=== PATIENT | female | born 1995 | race American Indian/Alaskan Native ===

== ENCOUNTER 2019-08-12 07:30 | Emergency (ER) | payer OTHER ==
[2019-08-12] MEDS ORDERED: BUTALB/ACETAMINOPHEN/CAFFEINE TAB PO ONE (07:58)
--- NOTE | 2019-08-12 08:34 | Emergency Department Report ---
HPI - General Chief Complaint: Headache Time Seen by Provider: 08/12/19 07:58 - HPI HPI: 24-year-old [place] female presents to the emergency department with a one-week history of a right-sided headache that sometimes radiates down towards the face and/or neck. She describes some mild photophobia but denies any vision change, slurred speech or any neurological deficits. Patient does not have any history of migraines but does say that she gets some recurrent headaches and the last one she had was about 2 weeks ago. She tried to my Profen and some sinus medication for her symptoms without any relief. Otherwise she denies any past medical history. No primary care physician. The patient drove herself in to be seen today. ED Past Medical Hx - Past Medical History Previous Medical History?: No - Surgical History Past Surgical History?: No - Social History Smoking Status: Never Smoker Substance Use Type: None ED Review of Systems ROS: Stated complaint: SEVERE HEADACHE Other details as noted in HPI Comment: All other systems reviewed and negative Constitutional: denies: chills, fever Eyes: denies: eye pain, vision change ENT: denies: ear pain, throat pain Respiratory: denies: shortness of breath Cardiovascular: denies: chest pain Gastrointestinal: denies: nausea, vomiting Neurological: headache. denies: weakness, numbness, paresthesias Physical Exam - Physical Exam Vital Signs: Vital Signs 08/12/19 08/12/19 07:38 08:18 Temperature 98.5 F Pulse Rate 85 Respiratory 20 20 Rate Blood Pressure 141/82 O2 Sat by Pulse 100 100 Oximetry Physical Exam: GENERAL: The patient is well-developed well-nourished. HENT: Normocephalic. Atraumatic. Patient has moist mucous membranes. EYES: Extraocular motions are intact. Pupils equal reactive to light bilaterally. No nystagmus. NECK: Supple. Trachea is midline. CHEST/LUNGS: Clear to auscultation. There is no respiratory distress noted. HEART/CARDIOVASCULAR: Regular. There is no tachycardia. There is no murmur. ABDOMEN: There is no abdominal distention. SKIN: Skin is warm and dry. NEURO: The patient is awake, alert, and oriented. The patient is cooperative. The patient has no focal neurologic deficits. Normal speech. Cranial nerves II through XII grossly intact. MUSCULOSKELETAL: There is no tenderness or deformity. There is no evidence of acute injury. ED Course Vital Signs 08/12/19 08/12/19 07:38 08:18 Temperature 98.5 F Pulse Rate 85 Respiratory 20 20 Rate Blood Pressure 141/82 O2 Sat by Pulse 100 100 Oximetry ED Medical Decision Making - Radiology Data Radiology results: report reviewed CT of the head does not show any acute intracranial process including no ischemia, shift, mass, bleeding or skull fracture. - Medical Decision Making This patient presents with a one-week complaint of a right-sided intermittent headache. She does not have any focal, motor or sensory deficits in her cranial nerves are intact. CT scan of the head without contrast does not show any bleed, shift, mass, ischemia, or any other acute process. Patient was given a single Fioricet and upon reevaluation she is feeling greatly improved and says that her headache is down to a 1 out of 10 in intensity. Vital signs have been within normal limits. She has been given referrals for primary care and for a neurologist. She will return to the emergency Department with any worsening of her symptoms or any acute distress. - Differential Diagnosis tension headache, sinusitis, migraine, subarachnoid Critical Care Time: No Critical care attestation.: If time is entered above; I have spent that time in minutes in the direct care of this critically ill patient, excluding procedure time. ED Disposition Clinical Impression: Cephalgia Qualifiers: Headache type: unspecified Headache chronicity pattern: episodic headache Intractability: not intractable Qualified Code(s): R51 - Headache Disposition: DC-01 TO HOME OR SELFCARE Is pt being admited?: No Condition: Stable Instructions: Acute Headache (ED) Additional Instructions: Please follow-up with a primary care physician in the next few days. Return to the emergency department with any worsening of your symptoms or with any acute distress. I'm giving you a referral for some primary care physicians, as well as a referral for a local neurologist, Dr. Torres, to follow up regarding your headaches. Referrals: ONEL CHAMORRO MD [Staff Physician] - 3-5 Days [facility] [Outside] - 3-5 Days KD TORRES MD [Referring] - 3-5 Days Time of Disposition: 09:44
--- NOTE | 2019-08-12 09:31 | Cat Scan Report ---
CT HEAD WITHOUT CONTRAST INDICATION : Headache for 12 hours. TECHNIQUE: Axial imaging performed from the skull apex through the skull base without the use of con trast. Sagittal and coronal reformatted images. All CT scans at this location are performed using C T dose reduction for ALARA by means of automated exposure control. COMPARISON: None FINDINGS: Parenchyma: No acute intracranial hemorrhage or parenchymal abnormality. Ventricles: Ventricles are normal in size and appear symmetric. Bones: No acute osseous abnormality. Sinuses: Sinuses and mastoid air cells are clear. Soft tissues: Soft tissues including the orbits appear normal. IMPRESSION: No acute abnormality. Signer Name: Adrien Peguero Jr, MD Signed: 08/12/2019 9:26 AM Workstation Name: [id number]
[2019-08-12 10:12] VITALS: BP 148/78
== END 2019-08-12 10:12 | disposition home or self-care (01) ==
LOC: ED 07:30
DX: R51 Headache (principal)
CPT/HCPCS: 70450